=== PATIENT | female | born 1965 | race Caucasian/White ===

== ENCOUNTER 2018-05-18 11:19 | Day surgery (SDC) | payer MEDICARE, MEDICAID ==
[2018-05-18] VITALS (12 sets, daily range): BP systolic 126–166; BP diastolic 62–84
[2018-05-18] MEDS ORDERED: normal saline 1000ml 1,000 ML IV SCH (11:50)
[2018-05-18] MEDS ORDERED: methylPREDNISolone sod succ 125mg/2ml vial IV ONE (11:50)
[2018-05-18] MEDS ORDERED: dextrose ORAL solution 15 GM/59 ML bottle PO PRN ×2 (11:50)
[2018-05-18] MEDS ORDERED: dextrose 50%-water 50ml dispensing syringe IV PRN ×2 (11:50)
[2018-05-18] MEDS ORDERED: MESSAGE TO PHARMACY PO ONE (11:50)
[2018-05-18] MEDS ORDERED: glucagon, human recombinant 1mg kit SUBCUT PRN (11:50)
[2018-05-18] MEDS ORDERED: LORazepam 0.5 MG tablet PO PRN (11:50)
[2018-05-18] MEDS ORDERED: nitroGLYCERIN 0.4mg SUBLingual tab SL PRN (11:50)
[2018-05-18] MEDS ORDERED: insulin Lispro (HumaLOG) vial - multi-dose SQ SCH (11:50)
[2018-05-18] MEDS ORDERED: diphenhydrAMINE 25mg capsule PO PRN (11:50)
[2018-05-18] MEDS ORDERED: iohexol 350 MG/ML 50ML vial IV ONE (12:42)
[2018-05-18] MEDS ORDERED: LIDOcaine 1% (10mg/ml)w/preservative injection 20ml MDV ONE (12:42)
[2018-05-18] MEDS ORDERED: iohexol 350MG/ML 100ml bottle IV ONE (12:42)
[2018-05-18 12:49] LABS: BASOPHILS # (AUTO) 0.1 X10'3 (0-0.2); BASOPHILS % (AUTO) 0.6 % (0-1); EOSINOPHILS # (AUTO) 0.1 X10'3 (0-0.9); HEMATOCRIT 39.5 % (35.0-45.0); LYMPHOCYTES % (AUTO) 20.5 % (21-51); MEAN CORPUSCULAR HEMOGLOBIN 28.5 PG (27.0-31.0); MEAN CORPUSCULAR HGB CONC 32.8 g/dL (33.0-36.5); MEAN CORPUSCULAR VOLUME 86.8 FL (78-98); MEAN PLATELET VOLUME 8.6 FL (7.4-10.4); MONOCYTES # (AUTO) 0.2 X10'3 (0-0.9); NEUTROPHILS # (AUTO) 7.2 X10'3 (1.8-7.7); NEUTROPHILS % (AUTO) 75.9 % (42-75); PLATELET COUNT 252 X10'3 (140-440); RED BLOOD COUNT 4.55 X10'6 (4.20-5.60); RED CELL DISTRIBUTION WIDTH 16.2 % (11.5-14.5); WHITE BLOOD COUNT 9.5 X10'3 (4.5-11.0)
[2018-05-18] MEDS ORDERED: VENL150C2 PO (12:50)
[2018-05-18] MEDS ORDERED: NITR0.4T51 SL (12:50)
[2018-05-18] MEDS ORDERED: ALB0.5UD IH (12:50)
[2018-05-18] MEDS ORDERED: METF500T PO (12:50)
[2018-05-18] MEDS ORDERED: BUPR300T53 PO (12:50)
[2018-05-18] MEDS ORDERED: LAMO25TA4 PO (12:50)
[2018-05-18 12:57] LABS: ALBUMIN 3.2 G/DL (3.4-5.0); ANION GAP 7 (8-16); BLOOD UREA NITROGEN 8 MG/DL (7-18); BUN/CREATININE RATIO 8.4 (6.6-38.0); CALCIUM 9.8 MG/DL (8.5-10.1); CHLORIDE 105 MMOL/L (99-107); CREATININE 0.95 MG/DL (0.40-0.90); GLUCOSE 154 MG/DL (70-104); POTASSIUM 3.7 MMOL/L (3.5-5.1); SODIUM 141 MMOL/L (135-145); TOTAL CARBON DIOXIDE 28.9 MMOL/L (24-32); eGFR 61 ML/MIN
[2018-05-18] MEDS ORDERED: midazolam 2 mg/2 ml injection ONE ×2 (12:59→13:16)
[2018-05-18] MEDS ORDERED: fentaNYL/PF 50MCG/1 ML 2ML syringe ONE (12:59)
[2018-05-18 13:08] LABS: PARTIAL THROMBOPLASTIN TIME 31 SECONDS (22-32); PROTHROMBIN TIME 9.8 SECONDS (9.0-12.0)
[2018-05-18] MEDS ORDERED: ondansetron/PF 4mg/2ml inj IV PRN (14:50)
[2018-05-18] MEDS ORDERED: OXAZEpam 15mg capsule PO PRN (14:50)
[2018-05-18] MEDS ORDERED: HYDROcodone/acetaminophen 5mg/325mg tablet PO PRN (14:50)
[2018-05-18] MEDS ORDERED: HYDROcodone/acetaminophen 10/325mg tab PO PRN (14:50)
[2018-05-18] MEDS ORDERED: proCHLORperazine 10 MG/2 ml inj IV PRN (14:50)
[2018-05-18 19:31] LABS: HEMOGLOBIN A1C 6.6 % (4.5-6.2)
[2018-05-18] MEDS ORDERED: insulin glargine (Lantus) pen - multi-dose SQ SCH (21:00)
== END 2018-05-18 20:10 | disposition home or self-care (01) ==
LOC: SSTAY O 11:19
PROVIDERS: ATTEND Internal Medicine Cardiovascular Disease
DX: I25.10 Atherosclerotic heart disease of native coronary artery without angina pectoris (principal); E66.01 Morbid (severe) obesity due to excess calories; Z79.899 Other long term (current) drug therapy; G47.33 Obstructive sleep apnea (adult) (pediatric); J44.9 Chronic obstructive pulmonary disease, unspecified; Z91.013 Allergy to seafood; Z68.41 Body mass index [BMI] 40.0-44.9, adult
CPT/HCPCS: 36415; 71046; 80048; 82948; 83036; 85025; 85610; 85730; 93005; 93458; 99152; 99153; A6257; J1644; J2001; J2250; J2930; J3010; J7030; Q0163; Q9967; A4620; C1760; C1769; J1815